=== PATIENT | female | born 1960 | race Caucasian/White ===

== ENCOUNTER 2017-05-30 13:35 | Emergency (ER) | payer OTHER ==
[~2017-05-30] VITALS: Ht 162.6 cm; Wt 72.6 kg
--- NOTE | ~2017-05-30 | EKG ---
PATIENT: JAZLYN DE LA TORRE UNIT #: [id number] Ventricular Rate: 79 BPM Atrial Rate: 79 BPM P-R Interval: 156 ms QRS Duration: 94 ms Q-T Interval: 382 ms QTC Calculation(Bezet): 438 ms P [place]: 84 degrees Calculated R [place]: 88 degrees Calculated T [place]: 75 degrees Diagnosis Line: Normal sinus rhythm Diagnosis Line: Possible Left atrial enlargement Diagnosis Line: Borderline ECG Diagnosis Line: When compared with ECG of 05-SEP-2015 09:43, Diagnosis Line: QRS duration has increased Diagnosis Line: Criteria for Septal infarct are no longer Present Diagnosis Line: Confirmed by DEANGELO GUZMÁN MD ([id number]) on Diagnosis Line: 05/31/2017 12:32:22 PM INTERPRETING MD: RAMIREZ BEACH
--- NOTE | ~2017-05-30 | CT2 ---
[facility] A Service of [facility] & [facility] RADIOLOGY TEXT RESULTS PATIENT: JAZLYN DE LA TORRE LOCATION: [facility] : 62 UNIT #: [id number] AGE: [address]: Tiago Kitchen MD SEX: F ORDER DR: [id number] [facility] [address] [place], [place] [address] [id number] MR#: [id number] #: [id number] NAME: JAZLYN DE LA TORRE : 1960 SEX: F STUDY DATE/TIME: 05/30/2017 15:56 UNIT: [facility] ROOM: STUDY DESCRIPTION: CT Abd and Pelv W Cont Attending Physician: Tiago Kitchen M.D. Ordering Physician: Tiago Kitchen M.D. Primary Care Physician: Damien Shahid M.D. MEDICAL IMAGING REPORT This report is preliminary unless electronic signature is present EXAM CT abdomen and pelvis, 05/30/2017 HISTORY Upper abdominal left flank pain. Prior history of breast cancer, cervical cancer, tonsillectomy, , bilateral hand surgery, left mastectomy, tubal ligation, appendectomy, back 2 rods placed, breast reconstruction x4. Cervical cancer. TECHNIQUE This CT exam was performed with one or more of the following radiation dose reduction techniques: automatic exposure control, adjustment of mA and/or kV according to patient size, and iterative reconstruction. FINDINGS CT abdomen and pelvis performed with intravenous administration of 100 mL Isovue 370. Enteric contrast also administered. Comparison 10/09/2013. Lung bases are notable for minimal dependent atelectasis. Inferior heart and pericardium unremarkable. The liver is normal in appearance. The gallbladder contains multiple gallstones. There is gallbladder wall thickening. Gallbladder wall measures up to about 6 mm in thickness. This is disproportionate to the volume of the gallbladder. I do not see definite pericholecystic inflammatory change or fluid but the appearance of the gallbladder is concerning for possible developing cholecystitis. There is mild central intrahepatic ductal distension. No obstructing process is seen. The extrahepatic common duct measures about 6 mm in diameter. The biliary ductal prominence is new compared to 2013. No common bile duct obstructing process is seen. There is no pancreatic ductal dilatation or acute pancreatic abnormality. The spleen, adrenal glands, kidneys are unremarkable. CT PELVIS: No inguinal adenopathy. Urinary bladder unremarkable. [facility] A Service of [facility] & [facility] RADIOLOGY TEXT RESULTS PATIENT: JAZLYN DE LA TORRE [id number] [birth year] UNIT #: [id number] AGE: [address]: Tiago Kitchen MD SEX: F ORDER DR: Atrophic uterus. Adnexal regions unremarkable. There is no free fluid in the pelvis. No pelvic or retroperitoneal adenopathy. The distal esophagus, stomach, small bowel unremarkable. Status post appendectomy by history. Colon unremarkable. Atherosclerotic arterial calcifications. No aortic aneurysm. Patient is status post revision of prior lumbar fusion. There is now unilateral L4 through S1 orthopedic fusion on the right with a L4 and S1 posterior fixation screw and vertical fixation sohail. No left-sided hardware at this time. Multilevel degenerative change in the spine. L2 on L3 7-8 mm retrolisthesis similar appearance on prior examination. L5 on S1 7 mm anterolisthesis. No change. No acute-appearing bony abnormality. IMPRESSION 1. Findings concerning for developing acute cholecystitis. Although the gallbladder is not pathologically dilated, there are multiple gallstones present and there is abnormal gallbladder wall thickening relative the gallbladder volume with gallbladder wall measuring up to about 6 mm in thickness. There is no definite pericholecystic fluid or inflammatory change. In addition there is mild new central intrahepatic ductal dilatation and mild extrahepatic common bile duct prominence. This is new in the interval from 2012 with no obstructing process seen. Please correlate with laboratory data and clinical presentation. If it would assist in management, the gallbladder could be further evaluated with ultrasound or radionuclide biliary scan. 2. Pancreas unremarkable. 3. Kidneys normal. 4. Status post appendectomy by history. Remainder of alimentary canal unremarkable. 5. Degenerative and postoperative changes in the lumbar spine as discussed in body of report. No acute-appearing bony abnormality. 6. See remainder findings in body of report above. Dictated by... Tiago Mc M.D. THIS IS AN ELECTRONICALLY VERIFIED REPORT Tiago Mc M.D. at 05/31/2017 2:44 PM HERMINIA/john TD: 05/31/2017 03:07 JOB #: [id number] MEDICAL IMAGING REPORT Page 1 of 1 COPY
[~2017-05-30 13:35] MED LIST: ATENOLOL PO; BENTYL20 MG PO; CIPRO PO; CLINDAMYCIN HC300 MG PO; DIFLUCAN100 MG PO; FLAGYL PO; KADIAN30 MG PO; LISINOPRIL PO; LISINOPRIL10 MG PO; LORTAB 10-3251 EACH PO; MULTI VITAMIN1 EACH; OMEPRAZOLE40 MG PO; ORAMORPH SR30 MG PO; PERCOCET10 PO; PERCOCET7.5; PYRIDIUM PO; TOPROL XL; ZOFRAN PO; ZOVIRAX800 MG PO
[2017-05-30 14:29] LABS: URINE APPEARANCE CLEAR; URINE BILIRUBIN NEG (NEG); URINE BLOOD NEG (NEG); URINE COLOR YELLOW; URINE GLUCOSE NEG (NEG); URINE KETONE NEG (NEG); URINE LEUKOCYTE ESTERASE NEG (NEG); URINE NITRATE NEG (NEG); URINE PH 5.5 (5-8); URINE PROTEIN NEG (NEG); URINE SOURCE CLEAN CATCH; URINE SPECIFIC GRAVITY 1.007 (1.003-1.035); URINE UROBILINOGEN 0.2 MG/DL (NEG)
[2017-05-30 14:31] LABS: CULTURE INDICATED? NO
[2017-05-30 14:53] LABS: POC - CKMB 1.2 ng/mL (0.0-7.9); POC - TROPONIN <0.05 ng/mL (<=0.05)
[2017-05-30 14:53] LABS: BASOPHIL# 0.1 X10e3 (0-0.3); BASOPHIL% 0.7 % (0-2.5); EOSINOPHIL# 0.2 X10e3 (0-0.7); EOSINOPHIL% 2.3 % (0.0-7.0); HEMATOCRIT 44.8 % (35.0-45.0); HEMOGLOBIN 15.2 gm/dL (12.0-16.0); LYMPHOCYTE# 1.9 X10e3 (1.0-3.5); LYMPHOCYTE% 17.5 % (17.0-45.0); MEAN CELL VOLUME 93.6 FL (83-96); MEAN CORPUSCULAR HEMOGLOBIN 31.7 PG (28-34); MEAN CORPUSCULAR HGB CONC 33.9 g/dL (30-36); MEAN PLATELET VOLUME 9.2 FL (6.5-11.5); MONOCYTE# 0.9 X10e3 (0-1.0); MONOCYTE% 8.8 % (3.0-12.0); NEUTROPHIL# 7.5 X10e3 (1.5-7.1); NEUTROPHIL% 70.7 % (40-75); PLATELET COUNT 235 X10e3 (140-420); RED BLOOD COUNT 4.79 X10e (3.90-5.30); RED CELL DISTRIBUTION WIDTH 13.5 % (11.0-15.5); WHITE BLOOD COUNT 10.7 X10e3 (4.0-10.5)
[2017-05-30 14:54] LABS: DIFF IND NO
[2017-05-30 15:16] LABS: ALBUMIN SERUM 4.1 g/dL (3.5-5.0); BILIRUBIN, DIRECT 0.2 mg/dL (0.0-0.2); BILIRUBIN,INDIRECT 0.8 mg/dL (0.0-0.9); BUN/CREATININE RATIO 21.66; CALCIUM SERUM 8.9 mg/dL (8.4-10.2); CREATININE SERUM 0.6 mg/dL (0.6-1.4); GLOM FILT RATE Estimated 101.9 mL/min (>60); POTASSIUM 4.8 mmol/L (3.5-5.1); PROTEIN TOTAL SERUM 7.3 g/dL (6.0-8.3)
[2017-06-02] MEDS ORDERED: OXYCODONE-ACET1 EAC1 PO (11:04)
[2017-06-02] MEDS ORDERED: MS CONTIN60 M1 PO (11:04)
[2017-06-02] MEDS ORDERED: BACLOFEN10 MG PO (11:04)
[2017-06-02] MEDS ORDERED: AMITRIPTYLINE H25 MG PO (11:05)
[2017-06-02] MEDS ORDERED: NEURONTIN300 MG PO (11:05)
[2017-06-02] MEDS ORDERED: KLONOPIN1 M1 (11:05)
[2017-06-02] MEDS ORDERED: METOPROLOL TAR25 MG PO (11:07)
[2017-06-02] MEDS ORDERED: AUGMENTIN PO (11:17)
== END 2017-05-30 17:51 | disposition home or self-care (01) ==
LOC: CED 13:35
PROVIDERS: Emergency Medicine
DX: K80.80 Other cholelithiasis without obstruction (principal); K21.9 Gastro-esophageal reflux disease without esophagitis; F17.200 Nicotine dependence, unspecified, uncomplicated; Z88.2 Allergy status to sulfonamides; Z88.8 Allergy status to other drugs, medicaments and biological substances
CPT/HCPCS: 36415; 74177; 80048; 80076; 81003; 82150; 82553; 83690; 84484; 85025; 93005; 99284; Q9967

== ENCOUNTER 2017-06-04 05:39 | Observation (INO) | payer OTHER ==
[~2017-06-04] VITALS: Ht 152.4 cm; Wt 70.5 kg
--- NOTE | ~2017-06-04 | CR71 ---
[facility] A Service of [facility] RADIOLOGY TEXT RESULTS PATIENT: JAZLYN DE LA TORRE LOCATION: [facility] 468-01 : 62 UNIT #: [id number] AGE: [address]: Dread Hollis III, MD SEX: F ORDER DR: [id number] [place] [id number] [facility]. [place], [place] [address] [id number] MR#: [id number] #: [id number] NAME: JAZLYN DE LA TORRE : 1960 SEX: F STUDY DATE/TIME: 06/04/2017 11:10 UNIT: [facility] ROOM: [facility] STUDY DESCRIPTION: CR Chest Single View Attending Physician: Dread Hollis III, M.D. Ordering Physician: Dread Hollis III, M.D. Primary Care Physician: Damien Shahid M.D. MEDICAL IMAGING REPORT This report is preliminary unless electronic signature is present EXAM Chest portable 06/04/2017 1110 hours HISTORY Patient planes of shortness of air for 1 day. COMPARISON 04/10/2015 FINDINGS Single portable upright view demonstrates normal heart size. There is a stable mildly tortuous aorta. Lungs demonstrate emphysematous change with linear densities in the right midlung, right lung base and left lung base. Findings favor the presence of atelectasis. No definite pneumonia, edema or effusion. Severe degenerative change at the left shoulder is noted. IMPRESSION 1. Emphysematous changes with linear densities at both lower lungs likely atelectasis. No definite edema, pneumonia or effusion. 2. Severe degenerative change at the left shoulder. Dictated by... Claudia Hamlin M.D. THIS IS AN ELECTRONICALLY VERIFIED REPORT Claudia Hamlin M.D. at 06/04/2017 1:44 PM Randall TD: 06/04/2017 13:17 JOB #: [id number] MEDICAL IMAGING REPORT [facility] A Service of [facility] RADIOLOGY TEXT RESULTS PATIENT: JAZLYN DE LA TORRE LOCATION: [facility] 468-01 : 62 UNIT #: [id number] AGE: [address]: Dread Hollis III, MD SEX: F ORDER DR: Page 1 of 1 COPY
--- NOTE | ~2017-06-04 | OR ---
Unit #: [id number] #: [id number] Patient: JAZLYN DE LA TORRE [id number] [address] [place], [place] [address] [id number] Audrey MR#: [id number] NAME: JAZLYN DE LA TORRE ROOM: 468 Date of Procedure: 06/04/2017 Admission Date: 06/04/2017 Surgeon: Dread Hollis III, M.D. : 1960 Attending Physician: Dread Hollis III, M.D. Primary Care Physician: Damien Shahid M.D. OPERATIVE REPORT PREOPERATIVE DIAGNOSIS Chronic cholecystitis. POSTOPERATIVE DIAGNOSES Acute cholecystitis with gallstones. PROCEDURE PERFORMED Laparoscopic cholecystectomy. ANESTHESIA General. SPECIMENS Gallbladder to pathology. COMPLICATIONS None apparent. ESTIMATED BLOOD LOSS 75 mL. INDICATIONS FOR PROCEDURE This is a 57-year-old lady, who has been having some nausea and right upper quadrant pain. She is here today for laparoscopic cholecystectomy. DESCRIPTION OF PROCEDURE After consent was obtained, the patient was brought to the operating room and placed in the supine position. General anesthetic was administered. Her abdomen was prepped and draped in standard surgical fashion. I made a 5-mm incision in the right upper quadrant and used an Optiview to enter into the peritoneal cavity without any difficulty. CO2 pneumoperitoneum was then established. Next, a second 5-mm port was placed in the supraumbilical region and an 11-mm port was placed in the midepigastric region and a third 5-mm port was placed in the right lateral subcostal region. She had a thickened gallbladder that was very difficult to grasp. I thought it was probably tense with bile and I aspirated only about 20 mL of bile out of it. I was slightly be able to grasp the gallbladder at that point and I retracted it superiorly and laterally. It was encased in a very thick fibrinous sheath. Again, it was difficult to dissect out the critical structures. However after quite sometime, I was able to identify the cystic duct which was clipped twice proximally, once distally, and then divided. Again, I then dissected out the cystic artery and it was Unit #: [id number] #: [id number] Patient: JAZLYN DE LA TORRE clipped and divided. There was a very thick peel behind the back of the gallbladder, again this was encasing the entire thing. This made taking it off the liver bed challenging. I was able to ultimately get the gallbladder off the liver bed using the hook cautery. I then placed the gallbladder into an EndoCatch bag and it was extracted through the epigastric port site after generously opening up the skin level and dilating the fascia quite a bit. Even despite all this, the bag still did rupture and I did remove the gallbladder completely. I then achieved good hemostasis. I did have to place some Surgicel in the liver bed. I irrigated again and had good hemostasis. All needle, sponge, and instrument counts were correct x2. I reapproximated the fascia at the epigastric port site with 2 separate interrupted 0 Vicryl suture. I then injected all the port sites with 0.25% plain Marcaine. I reapproximated the skin edges with interrupted 4-0 Vicryl subcuticular suture. Steri-Strips were then applied. The patient tolerated the procedure without any problems and returned to the recovery room in stable condition. Dictated by... Dread Hollis III, M.D. VCL/amaris TD: 06/04/2017 17:42 JOB #: [id number] CC: Claudio Zacarias M.D. OPERATIVE REPORT Page 1 of 1 X Dread Hollis III, MD PROCEDURE OPERATIVE NOTE
--- NOTE | ~2017-06-04 | DS ---
Unit #: [id number] #: [id number] Patient: JAZLYN DE LA TORRE [id number] [address] [address] [id number] I MR#: [id number] NAME: JAZLYN DE LA TORRE ROOM: 468 Age: 57 Sex: F Admission Date: 06/04/2017 : 1960 Discharge Date: 06/06/2017 Attending Physician: Dread Hollis III, M.D. Primary Care Physician: Damien Shahid M.D. DISCHARGE SUMMARY PRIMARY REASON FOR ADMISSION Cholecystitis, hypoxemia status post cholecystectomy. HISTORY OF PRESENT ILLNESS The patient is a 57-year-old woman who presented to the hospital for laparoscopic cholecystectomy for chronic cholecystitis. Postoperatively she had significant hypoxia in the recovery room. She was subsequently admitted. Pulmonary was consulted. PHYSICAL EXAMINATION See admission history and physical. HOSPITAL COURSE The patient was admitted. She was started on a diet, which she tolerated well. Her postop labs were benign. She was seen by pulmonary. A chest x-ray was performed, which was benign. She was started on Mini-Neb. She is on home O2 already. She was cleared for discharge after hypoxemia resolved. DISPOSITION Home. CONDITION Good. FOLLOW-UP 1. She will follow up with Dr. Hollis in 2 weeks. 2. She will follow up with pulmonary as arranged. Dictated by... Tab Wilson/london TD: 06/07/2017 10:27 JOB #: [id number] Unit #: [id number] #: [id number] Patient: JAZLYN DE LA TORRE DISCHARGE SUMMARY Page 1 of 1 X Talib Davis DISCHARGE SUMMARY
--- NOTE | ~2017-06-04 | CO ---
Unit #: [id number] #: [id number] Patient: JAZLYN THORPE [id number] [address] [address] [id number] MR#: [id number] NAME: JAZLYN THORPE ROOM: [facility] Age: 57 Sex: F Admission Date: 06/04/2017 : 1960 Attending Physician: Dread Hollis III, M.D. Primary Care Physician: Damien Shahid M.D. Consultation Date: 06/04/2017 CONSULTATION REPORT REASON FOR CONSULTATION Hypoxemia following surgery. HISTORY OF PRESENT ILLNESS [age]an[age]-old female who has chronic obstructive pulmonary disease, and chronic respiratory failure with oxygen at home for approximately one year that she uses only intermittently. She had evidence of cholecystitis and underwent cholecystectomy. In the recovery room, she had somewhat low saturations and required oxygen at two liters, and we were asked to evaluate the patient. She denies any acute pulmonary decompensation prior to surgery. Please note that she still is postop and reliability of the history may be somewhat in question but she seemed to be fairly reliable. She denies significant shortness of breath currently, no pleurisy, sputum production, hemoptysis, or fever. PAST MEDICAL HISTORY Remarkable for remote history of breast cancer eleven years ago, history of chronic obstructive pulmonary disease, a history of chronic pain on "morphine." History of colitis in 2010. History of chronic respiratory failure. Apparently, oxygen was ordered approximately one year ago after a hospitalization at [facility]. She cannot tell me the specifics of her hospitalization. Dr. Shahid follows her for her oxygen and pulmonary needs. MEDICATIONS AT HOME According to a medication reconciliation sheet: 1. MS Contin 2. Oxycodone 3. Baclofen 4. Neurontin 5. Amitriptyline 6. Klonopin 7. Metoprolol 8. Augmentin 9. Albuterol 10. She has a Ventolin inhaler ALLERGIES Cephalosporin, sulfa. SOCIAL HISTORY She does not drink. She does smoke. She lives with family at home. FAMILY HISTORY Unit #: [id number] #: [id number] Patient: JAZLYN THORPE No definite familial lung disease. REVIEW OF SYSTEMS No chest pain, palpitations. She feels remarkably well after her surgery. She was even asking if she has already had it. Denies really any abdominal discomfort. No hematuria, dysuria, focal weakness, paresthesias. There is no real significant wheezing or sputum production. Further review of systems unremarkable. PHYSICAL EXAMINATION GENERAL: Reveals a chronically ill-appearing female somewhat older appearing than stated age. VITAL SIGNS: She is afebrile, pulse 77, respiratory rate 16, blood pressure 173/98. She is 5 feet tall, 160 pounds. HEENT: Pupils equal, round, reactive to light. Sclera anicteric. Head: atraumatic. NECK: Supple. No supraclavicular or cervical adenopathy appreciated. She is edentulous. Mucous membranes are moist. CHEST: She sits up promptly in bed, posterior auscultation was unremarkable except for decreased breath sounds and prolonged expiratory phase, anterior evaluation unremarkable as well, no consolidation or stridor. CARDIAC EXAMINATION: Reveals a regular rate and rhythm. Distant heart tones. No murmur, rub, or gallop. ABDOMEN: Remarkably soft, nontender, certainly I did not palpate the incision site. EXTREMITIES: SCD stockings are in place, no clubbing, cyanosis, or edema. NEUROLOGIC: Grossly intact. No focal muscle or sensory deficits. DIAGNOSTIC STUDIES LABORATORY: BUN is 13, creatinine is 0.6 on preoperative labs. Hemoglobin was 15.2, white blood cell count 10.7, platelet count 235. IMAGING: Laboratory examination, no chest x-ray has been performed but CT abdomen days ago, showed no significant abnormalities on the lower lung cuts. Last chest x-ray was in 2014, chronic obstructive pulmonary disease with no acute infiltrates. IMPRESSION 1. Hypoxemia following surgery, quite frankly is not expected. I suspect she has significant underlying chronic obstructive pulmonary disease and has required oxygen at home. 2. Chronic obstructive pulmonary disease. 3. Chronic respiratory failure with only p.r.n. use at home. 4. Ongoing active tobacco use. 5. Chronic pain. 6. Anxiety resulting in chronic narcotic and benzodiazepine use. 7. Remote history of breast cancer. 8. Remote history of colitis. PLAN Pulmonary hygiene, nebulized bronchodilators, we will check oxygen needs at discharge, it wouldn't surprise me if she would need oxygen twenty-four hours at home until she is fully ambulatory. Outpatient PFTs and I suspect that she would benefit from some type of controlling agent, we may Unit #: [id number] #: [id number] Patient: JAZLYN THORPE add a long-acting muscarinic agent prior to discharge. Certainly no smoking is of great benefit and this has been discussed and we will have ongoing counseling. Thank you very much for allowing me to participate in the care of Ms. Thorpe. Dictated by... Tab Cortes/fortunato TD: 06/05/2017 09:24 JOB #: [id number] CC: Dread Hollis III, M.D. CONSULTATION REPORT Page 1 of 1 X Claudio Zacarias MD X CONSULTATION REPORT
[~2017-06-04 05:39] MED LIST changes: +AMITRIPTYLINE H25 MG PO; +AUGMENTIN PO; +BACLOFEN10 MG PO; +KLONOPIN1 M1; +METOPROLOL TAR25 MG PO; +MS CONTIN60 M1 PO; +NEURONTIN300 MG PO; +OXYCODONE-ACET1 EAC1 PO
[2017-06-04] MEDS ORDERED: ALBUTEROL2.5 MG/3 M INH (06:14)
[2017-06-04] MEDS ORDERED: ALBUTEROL17 GM INH (06:15)
[2017-06-05 03:54] LABS: HEMATOCRIT 32.7 % (35.0-45.0); HEMOGLOBIN 10.9 gm/dL (12.0-16.0); MEAN CELL VOLUME 95.1 FL (83-96); MEAN CORPUSCULAR HEMOGLOBIN 31.7 PG (28-34); MEAN CORPUSCULAR HGB CONC 33.3 g/dL (30-36); MEAN PLATELET VOLUME 9.5 FL (6.5-11.5); RED BLOOD COUNT 3.44 X10e (3.90-5.30)
[2017-06-05 04:05] LABS: ALBUMIN SERUM 2.8 g/dL (3.5-5.0); BILIRUBIN,TOTAL 0.3 mg/dL (0.2-2.0); CALCIUM SERUM 8.2 mg/dL (8.4-10.2); CREATININE SERUM 0.6 mg/dL (0.6-1.4); GLOM FILT RATE Estimated 101.9 mL/min (>60); POTASSIUM 4.3 mmol/L (3.5-5.1); PROTEIN TOTAL SERUM 5.8 g/dL (6.0-8.3)
[2017-06-06] MEDS ORDERED: METOPROLOL TAR25 MG PO (11:09)
[2017-06-06] MEDS ORDERED: LORTAB 7.5-3251 EACH PO (11:12)
== END 2017-06-06 11:47 | disposition home or self-care (01) ==
LOC: CSUR 05:39 → CPACUOF 05:40 → CSUR 05:40 → CPACUOF 08:40 → C4C 08:51 → CSUR 08:51 → CPACUOF 12:33 → C4C 12:33 → CSUR 13:00 → C4C 06-06 11:47
PROVIDERS: Surgery
DX: K80.12 Calculus of gallbladder with acute and chronic cholecystitis without obstruction (principal); J44.9 Chronic obstructive pulmonary disease, unspecified; M19.90 Unspecified osteoarthritis, unspecified site; F41.9 Anxiety disorder, unspecified; F32.9 Major depressive disorder, single episode, unspecified; F17.210 Nicotine dependence, cigarettes, uncomplicated; Z87.440 Personal history of urinary (tract) infections; Z85.3 Personal history of malignant neoplasm of breast; Z87.442 Personal history of urinary calculi; Z88.2 Allergy status to sulfonamides; Z79.899 Other long term (current) drug therapy; Z98.890 Other specified postprocedural states; Z98.51 Tubal ligation status; Z90.12 Acquired absence of left breast and nipple
CPT/HCPCS: 71010; 80053; 85027; 88304; 94640; 94760; 96374; G0378; J0131; J0330; J1100; J2250; J2270; J2550; J2710; J2765